=== PATIENT | female | born 1975 | race Hispanic/Latino ===

== ENCOUNTER → 2021-11-27 | Day surgery (SDC) | payer BC, OTHER ==
[~2021-11-27] MED LIST: ANUSOL-HC25 MG RC; MIRALAX17 GM PO; PROPOFOL IV EMULSION 10 MG/ML 20 ML VIAL ONE
[2021-11-27 17:45] VITALS: BP 130/94
== END | disposition home or self-care (01) ==
LOC: OR 12:39
PROVIDERS: ATTEND Internal Medicine Gastroenterology
DX: K59.09 Other constipation (principal); K63.5 Polyp of colon; K57.30 Diverticulosis of large intestine without perforation or abscess without bleeding; K64.8 Other hemorrhoids; K62.89 Other specified diseases of anus and rectum; Z71.3 Dietary counseling and surveillance; N20.0 Calculus of kidney; Z71.89 Other specified counseling; Z90.49 Acquired absence of other specified parts of digestive tract; Z01.812 Encounter for preprocedural laboratory examination; Z20.822 Contact with and (suspected) exposure to COVID-19; Z68.42 Body mass index [BMI] 45.0-49.9, adult; Z80.0 Family history of malignant neoplasm of digestive organs
CPT/HCPCS: 45380; 81025; J2704; U0002; 45378

== ENCOUNTER → 2021-12-30 | Outpatient (CLI) | payer OTHER ==
[~2021-12-30] MED LIST changes: -PROPOFOL IV EMULSION 10 MG/ML 20 ML VIAL ONE
== END ==
LOC: RAD 07:31
PROVIDERS: ATTEND Internal Medicine Gastroenterology
DX: K59.00 Constipation, unspecified (principal)
CPT/HCPCS: 74018; 81025